=== PATIENT | female | born 1985 | race Caucasian/White ===

== ENCOUNTER 2017-06-24 10:36 | Emergency (ER) | payer OTHER ==
[~2017-06-24] VITALS: Ht 170.2 cm; Wt 81.0 kg
[~2017-06-24 10:36] MED LIST: GLUCTAB PO; MACR100C PO
[2017-06-24 10:39] VITALS: BP 142/75; PULSE 80; RESP 12; TEMP 98.9; O2SAT 100
[2017-06-24] MEDS ORDERED: CIPR0.3S RIGHT EAR (11:15)
--- NOTE | 2017-06-24 11:15 | PD ---
HPI Chief Complaint: ENT Complaint Time Seen by Provider: 11:05 Travel History International Travel<30 days: No Contact w/Intl Traveler<30days: No Traveled to known affect area: No History of Present Illness HPI 31 year-old female presents to emergency department for evaluation right ear pain worsening over last week. Patient denies trauma. No fever or chills. States that the pain radiates to her face. It is throbbing at times. Has history of otitis externa as well as otitis media. Has ENT follow-up. She has no other symptoms to report at this time. [facility] Past Medical History Medical History: Denies Significant Hx Cancer: No Cardiovascular Problems: No Diabetes: No Endocrine: No Gastrointestinal Disorders: Yes (ACID REFLUX ) Genitourinary: Yes (PTOS) Hepatitis: No Hiatal Hernia: No Immune Disorder: No Kidney Stones: Yes Musculoskeletal: No Neurologic: No Psychiatric: No Reproductive: Yes (PELVIC PAIN) Respiratory: No Thyroid Disease: No ?: LMP: 05/01/17 : 1 Para: 0 : 1 Past Surgical History Abdominal Surgery: No AICD: No Body Medical Devices: NONE Cardiac Surgery: No Ear Surgery: No Endocrine Surgery: No Eye Surgery: No Genitourinary Surgery: Yes (LITHOTRIPSY LEFT KIDNEY 2010; LASER SX FOR KIDNEY STONE 2001/LAPAROSCOPY) Gynecologic Surgery: No Joint Replacement: No Oral Surgery: No Pacemaker: No Thoracic Surgery: No Other Surgery: Yes Social History Alcohol Use: No Tobacco Use: No Substance Use: No Allergies-Medications (Allergen,Severity, Reaction): Coded Allergies: Sulfa (Sulfonamide Antibiotics) (Verified Allergy, Severe, 06/24/17) THROAT CLOSES, TONGUE SWELLS bee venom protein (honey bee) (Verified Allergy, Severe, SWELLING, SOB, ) penicillin G (Verified Allergy, Severe, 06/24/17) THROAT SWELLING, HIVES TO FACE Reported Meds & Prescriptions Reported Meds & Active Scripts Active Ciprodex Otic Drops (Ciprofloxacin-Dexamethasone Otic Drops) 0.3-0.1% Susp 4 Drop RIGHT EAR BID Reported Macrobid (Nitrofurantoin Macrocrystals) 100 Mg Cap 100 Mg PO BID Glucophage XR 24 HR (Metformin HCl) 500 Mg Tab 500 Mg PO BID FOR POLYCYSTIC OVARIAN SYNDROME Review of Systems Except as stated in HPI: all other systems reviewed are Neg Physical Exam Narrative GENERAL: Well-nourished, well-developed female patient in no acute distress SKIN: Focused skin assessment warm/dry. HEAD: Normocephalic. No mastoid tenderness EARS: Bilateral pinnae and left external canals appear within normal limits. Right external canal is edematous, mildly erythematous. I am able to visualize the tympanic membrane and it is intact. Bilateral tympanic membranes without erythema, dullness or perforation. EYES: No scleral icterus. No injection or drainage. ENT: Mucosa pink and moist. No erythema or exudates. No uvular edema. No uvular , palatal, or tonsillar deviation. Airway patent. Nasal turbinates appear normal without nasal blood, purulent drainage or septal hematoma. NECK: Supple, trachea midline. No JVD or lymphadenopathy. CARDIOVASCULAR: Regular rate and rhythm without murmurs, gallops, or rubs. RESPIRATORY: Breath sounds equal bilaterally. No accessory muscle use. MUSCULOSKELETAL: No cyanosis, or edema. BACK: Nontender without obvious deformity. No CVA tenderness. Data Data Last Documented VS Vital Signs Date Time Temp Pulse Resp B/P (MAP) Pulse Ox O2 Delivery O2 Flow Rate FiO2 06/24/17 11:31 06/24/17 10:39 98.9 80 12 100 MDM Medical Decision Making Medical Screen Exam Complete: Yes Emergency Medical Condition: Yes Medical Record Reviewed: Yes Differential Diagnosis Otitis externa versus otitis media versus abscess versus insect bite versus psoriasis versus cellulitis Narrative Course 31-year-old female presents to the emergency department for evaluation right ear pain. Physical exam is consistent with an otitis externa. Patiently provided Ciprodex otic drops prescription. She is counseled on care. She already has established with your nose and throat specialist and has had this in the past. I encouraged her to follow them. She agrees to return immediately with any acute worsening of symptoms. Diagnosis Primary Impression: Right otitis externa Qualified Codes: H60.501 - Unspecified acute noninfective otitis externa, right ear Referrals: Ear / Nose / Throat Specialist Primary Care Physician Patient Instructions: General Instructions, Otitis Externa (ED) Additional Instructions: Avoid q tip use Avoid water submersion Tylenol as directed on the package as needed for pain Follow up with a primary care provider Seek ENT evaluation if symptoms persist Return immediately with acute worsening of symptoms Med/Other Pt SpecificInfo: Prescription(s) given Scripts Ciprofloxacin-Dexamethasone Otic Drops (Ciprodex Otic Drops) 0.3-0.1% Susp 4 DROP RIGHT EAR BID for Infection, #1 BOTTLE 0 Refills Prov: Adia Bryan 06/24/17 Disposition: 01 DISCHARGE HOME Condition: Stable Adia Bryan Jun 24, 2017 11:15
== END 2017-06-24 11:32 | disposition home or self-care (01) ==
LOC: NEPD 10:36
DX: H60.501 Unspecified acute noninfective otitis externa, right ear (principal)
CPT/HCPCS: 99283

== ENCOUNTER 2017-10-18 09:28 | Emergency (ER) | payer OTHER ==
[~2017-10-18 09:28] MED LIST changes: +CIPR0.3S RIGHT EAR
--- NOTE | 2017-10-18 11:21 | PD ---
HPI Chief Complaint Shortness of breath palpitations Date Seen: Oct 18, 2017 Time Seen: 11:15 Travel History International Travel<30 Days: No Contact w/Intl Traveler<30Days: No Known Affected Area: No History of Present Illness HPI Patient 32-year-old white female P0 [address] Mo for care she complains of shortness of breath palpitations noted in the middle the night. She was racing out of her chest is had shortness of breath several times in the last couple weeks. No pain with breathing no rapid breathing, heart rate is reactive for 23 weeks and no contractions, she denies bleeding or leakage of fluid. Weeks Gestation: 23 Para: 0 : 1 History Social History Alcohol Use: No Tobacco Use: No Substance Abuse: No Allergies-Medications (Allergen,Severity, Reaction): Coded Allergies: Sulfa (Sulfonamide Antibiotics) (Verified Allergy, Severe, 10/18/17) THROAT CLOSES, TONGUE SWELLS bee venom protein (honey bee) (Verified Allergy, Severe, SWELLING, SOB, ) penicillin G (Verified Allergy, Severe, 10/18/17) THROAT SWELLING, HIVES TO FACE Home Meds Discontinued Reported Medications Nitrofurantoin Monohyd Macro (Macrobid) 100 Mg Cap, 100 MG PO BID, CAP 03/16/14 Metformin XR 24 HR (Glucophage XR 24 HR) 500 Mg Tab, 500 MG PO BID, TAB FOR POLYCYSTIC OVARIAN SYNDROME 03/06/14 Discontinued Scripts Ciprofloxacin-Dexamethasone Otic Drops (Ciprodex Otic Drops) 0.3-0.1% Susp, 4 DROP RIGHT EAR BID for Infection, #1 BOTTLE 0 Refills Prov:Adia Bryan 06/24/17 Review of Systems General / Constitutional: No: Fever, Weight Gain, Chills, Other Eyes: No: Diploplia, Blurred Vision, Visual changes, Pain, Photophobia HENT: No: Headaches, Vertigo, Lightheadedness Cardiovascular: Palpitations, No: Irregular Rhythm, Chest Pain or Discomfort, Tachycardia, Syncope, Varicosities, Edema, Cyanosis Respiratory: Short of Breath, No: Cough, Other Gastrointestinal: No: Nausea, Vomiting, Diarrhea Genitourinary: No: Decreased Urinary Output, Oliguria Musculoskeletal: No: Limited ROM, Weakness, Cramping, Edema, Pain Skin: No Rash, No Itching, No Dryness, No Lumps, No Change in Pigmentation, No Change in Nails, No Alopecia, No Lesions Neurologic: No: Weakness, Dizziness, Syncope, Focal Abnormalities, Coordination Problem, Headache, Slurred Speech, Seizures Psychiatric: No: Depression, Suicidal Ideations, Homicidal Ideation Endocrine: No: Heat Intolerance, Cold Intolerance, Polydipsia, Polyuria, Other Physical Exam Narrative GENERAL: Well-nourished, well-developed patient. SKIN: Warm and dry. HEAD: Normocephalic and atraumatic. EYES: No scleral icterus. No injection or drainage. ENT: No nasal drainage noted. Mucous membranes pink. Airway patent. NECK: Supple, trachea midline. No JVD. CARDIOVASCULAR: Regular rate and rhythm without murmurs, gallops, or rubs. RESPIRATORY: Breath sounds equal bilaterally. No accessory muscle use. BREASTS: Bilateral exam showed no masses , no retractions, no nipple discharge. ABDOMEN/GI: Abdomen soft, non-tender, bowel sounds present, no rebound, no guarding Gravid to [-23] weeks size Fundal Height: 23[-] [-] Membranes: [intact ] Uterine Contractions: [none-] FHT's: Category: [-1] Baseline: [133-] Reactive: [R-] Variability: [-mod] Decels: [none-] EXTREMITIES: No cyanosis or edema. BACK: Nontender without obvious deformity. No CVA tenderness. NEUROLOGICAL: Awake and alert. Motor and sensory grossly within normal limits. Five out of 5 muscle strength in all muscle groups. Normal speech. MDM Interpretation(s) -year-old white female at 23 weeks presents with some shortness of breath and palpitations. On OB ED she is has a normal sinus rhythm lungs are clear to auscultation she has no history of asthma,, flu, or pneumonia. She has no pain with respiration and no rapid breathing. Pulse ox is 99%. Slight likely just some mild shortness of breath related to Plan Norma to be discharged home to observation and sensory repeats itself to return for repeat evaluation. Diagnosis Diagnosis: Primary Impression: Shortness of breath due to in second trimester Additional Impression: Heart palpitations Disposition: 01 DISCHARGE HOME Condition: Stable Lionel Patel II, MD Oct 18, 2017 11:21
== END 2017-10-18 11:28 | disposition home or self-care (01) ==
LOC: HOBED 09:28
DX: O26.892 Other specified pregnancy related conditions, second trimester (principal); R06.02 Shortness of breath; R00.2 Palpitations; Z3A.23 23 weeks gestation of pregnancy
CPT/HCPCS: 99284

== ENCOUNTER 2018-01-30 14:55 | Emergency (ER) | payer OTHER ==
--- NOTE | 2018-01-30 15:51 | PD ---
HPI Chief Complaint Elevated blood pressure Date Seen: January 30, 2018 Time Seen: 15:49 Travel History International Travel<30 Days: No Contact w/Intl Traveler<30Days: No Known Affected Area: No History of Present Illness HPI 32-year-old who is at 38 weeks 1 day comes in due to a elevated blood pressure in the office. Patient states that her blood pressures have been slightly higher than normal the last couple of weeks and that 2-3 weeks ago she did blood work and 24-hour protein was normal. Today in the office her blood pressure was 128/90 and she was sent over for an evaluation. She states she has lower extremity edema but no other symptoms of preeclampsia. Patient denies contractions, vaginal bleeding, headache or abdominal pain. Good movement Weeks Gestation: 38 Para: 0 : 2 History Past Medical History Medical History: Denies Significant Hx Past Surgical History Narrative Surgical Diagnostic laparoscopy Lithotripsy Family History Family History: Negative Social History Alcohol Use: No Tobacco Use: No Substance Abuse: No Allergies-Medications (Allergen,Severity, Reaction): Coded Allergies: Sulfa (Sulfonamide Antibiotics) (Verified Allergy, Severe, 10/18/17) THROAT CLOSES, TONGUE SWELLS bee venom protein (honey bee) (Verified Allergy, Severe, SWELLING, SOB, ) penicillin G (Verified Allergy, Severe, 10/18/17) THROAT SWELLING, HIVES TO FACE Review of Systems Except as stated in HPI: all other systems reviewed are Neg Physical Exam Narrative GENERAL: Well-nourished, well-developed patient. SKIN: Warm and dry. HEAD: Normocephalic and atraumatic. EYES: No scleral icterus. No injection or drainage. ENT: No nasal drainage noted. Mucous membranes pink. Airway patent. NECK: Supple, trachea midline. No JVD. CARDIOVASCULAR: Regular rate and rhythm without murmurs, gallops, or rubs. RESPIRATORY: Breath sounds equal bilaterally. No accessory muscle use. ABDOMEN/GI: Abdomen soft, non-tender, bowel sounds present, no rebound, no guarding Gravid to [-40] weeks size Fundal Height: [-] GENITOURINARY: Deferred External Genitalia: intact and normal in appearance BUS glands: [-] Cervix: [-] Dilatation: [-] Effacement: [-] Station: [-] Presentation: [-] Membranes: [intact or ruptured] Uterine Contractions: [-] Absent FHT's: Category: [-] 1 Baseline: [-] 140 Reactive: [-] Moderate Variability: [-] Moderate Decels: [-] Absent EXTREMITIES: 2+ lower extremity edema BACK: Nontender without obvious deformity. No CVA tenderness. NEUROLOGICAL: Awake and alert. Motor and sensory grossly within normal limits. Five out of 5 muscle strength in all muscle groups. Normal speech. Data Data Orders Orders Vital Signs (Adult) .ON ADMISSION (01/30/18 15:48) ^ Labor Status (01/30/18 15:48) Urinalysis - C+S If Indicated (01/30/18 15:48) ^ Non Stress Test (01/30/18 15:48) Diet Liquid (01/30/18 Dinner) Cbc No Diff, Includes Plts (01/30/18 15:48) Comprehensive Metabolic Panel (01/30/18 15:48) Uric Acid (01/30/18 15:48) Protein Creat Ratio, Random Ur (01/30/18 15:48) Labs Laboratory Tests Test 01/30/18 15:40 01/30/18 15:50 Urine Color LIGHT-YELLOW Urine Turbidity HAZY Urine pH 5.5 Urine Specific [place] 1.015 Urine Protein 30 mg/dL Urine Glucose (UA) NEG mg/dL Urine Ketones NEG mg/dL Urine Occult Blood SMALL Urine Nitrite NEG Urine Bilirubin NEG Urine Urobilinogen LESS THAN 2.0 MG/DL Urine Leukocyte Esterase MOD Urine RBC 51 /hpf Urine WBC 56 /hpf Urine Squamous Epithelial Cells 7 /hpf Urine Bacteria MOD /hpf Microscopic Urinalysis Comment CULTURE INDICATED Urine Random Creatinine 103 MG/DL Urine Random Total Protein 42 MG/DL Urine Protein/Creatinine Ratio 0.41 White Blood Count 17.0 TH/MM3 Red Blood Count 4.53 MIL/MM3 Hemoglobin 11.8 GM/DL Hematocrit 35.7 % Mean Corpuscular Volume 78.8 FL Mean Corpuscular Hemoglobin 26.1 PG Mean Corpuscular Hemoglobin Concent 33.1 % Red Cell Distribution Width 15.6 % Platelet Count 211 TH/MM3 Mean Platelet Volume 10.4 FL Blood Urea Nitrogen 5 MG/DL Creatinine 0.59 MG/DL Random Glucose 119 MG/DL Total Protein 6.6 GM/DL Albumin 2.5 GM/DL Calcium Level 8.6 MG/DL Uric Acid 3.7 MG/DL Alkaline Phosphatase 142 U/L Aspartate Amino Transf (AST/SGOT) 13 U/L Alanine Aminotransferase (ALT/SGPT) 17 U/L Total Bilirubin 0.4 MG/DL Sodium Level 139 MEQ/L Potassium Level 3.7 MEQ/L Chloride Level 107 MEQ/L Carbon Dioxide Level 19.5 MEQ/L Anion Gap 13 MEQ/L Estimat Glomerular Filtration Rate 117 ML/MIN [facility] Medical Record Reviewed: Yes Plan 32-year-old who is at 38 weeks 1 day with gestational hypertension Preeclampsia blood work was normal except for an elevated protein creatinine ratio, patient will provide a 24-hour urine protein collection and this was given to her before discharge Patient was discharged home with follow-up to the office Patient will call the office tomorrow to discuss a follow-up date for this week , she is presently at decreased activity at home and her physician is aware of and is following her blood pressure elevation Diagnosis Diagnosis: Primary Impression: 38 weeks gestation of Additional Impressions: Maternal obesity syndrome in third trimester Gestational hypertension Disposition: 01 DISCHARGE HOME Delia Rice MD January 30, 2018 15:51
[2018-01-30 17:01] VITALS: BP 124/90; PULSE 89
[2018-01-30 17:09] LABS: HEMATOCRIT 35.7 % (35.0-46.0); HEMOGLOBIN 11.8 GM/DL (11.6-15.3); MEAN CELL VOLUME 78.8 FL (80.0-100.0); MEAN CORPUSCULAR HEMOGLOBIN 26.1 PG (27.0-34.0); MEAN CORPUSCULAR HGB CONC 33.1 % (32.0-36.0); MEAN PLATELET VOLUME 10.4 FL (7.0-11.0); PLATELET COUNT 211 TH/MM3 (150-450); RED BLOOD COUNT 4.53 MIL/MM3 (4.00-5.30); RED CELL DISTRIBUTION WIDTH 15.6 % (11.6-17.2)
[2018-01-30 17:16] VITALS: BP 124/83; PULSE 88
[2018-01-30 17:18] LABS: BACTERIA, URINE MOD /hpf; BILIRUBIN, URINE NEG (NEG); BLOOD, URINE SMALL (NEG); GLUCOSE,URINE NEG (NEG); KETONE, URINE NEG (NEG); NITRITE,URINE NEG (NEG); PH, URINE 5.5 (5.0-8.5); SQUAMOUS EPITHELIAL CELL URINE 7 /hpf (0-5); URINE COLOR LIGHT-YELLOW (YELLW/STRAW); URINE LEUKOCYTE ESTERASE MOD (NEG)
[2018-01-30 17:30] VITALS: BP 135/84; PULSE 92
[2018-01-30 17:33] LABS: ALBUMIN 2.5 GM/DL (3.4-5.0); AST (GOT) 13 U/L (15-37); BICARBONATE 19.5 MEQ/L (21.0-32.0); BLOOD UREA NITROGEN 5 MG/DL (7-18); CALCIUM 8.6 MG/DL (8.5-10.1); CHLORIDE 107 MEQ/L (98-107); CREATININE 0.59 MG/DL (0.50-1.00); GLOMERULAR FILTRATION RATE 117 ML/MIN (>89); GLUCOSE,RANDOM 119 MG/DL (74-106); SODIUM (NA) 139 MEQ/L (136-145)
[2018-01-30 17:34] LABS: ALT (GPT) 17 U/L (10-53)
[2018-01-30 17:36] LABS: ALKALINE PHOSPHATASE 142 U/L (45-117); TOTAL BILIRUBIN ADULT 0.4 MG/DL (0.2-1.0); TOTAL PROTEIN 6.6 GM/DL (6.4-8.2)
--- NOTE | 2018-02-06 17:56 | MH ---
cc: Ozzy Mo MD DATE OF ADMISSION: 01/30/2018 CHIEF COMPLAINT: Patient is to be admitted for induction of labor. history of mild preeclampsia. HISTORY OF PRESENT ILLNESS: The patient is a 32-year-old female. She is 1, para 0, estimated date of confinement is 02/09/2018. The patient is 40-1/7 weeks' gestation based on early first trimester ultrasound. The patient has been followed closely for increasing blood pressures. Blood pressure range has gone from 130s/70s to 140s/90. The patient has had recent lab work which demonstrates an increasing protein creatinine ratio and a 24-hour urine with elevated total protein. The patient denies any symptoms related to preeclampsia with severe features. She has no abdominal pain. No blurry vision, no visual disturbance, no headache. No nausea or vomiting. She feels active movement daily. After reviewing the patient's history, consideration for induction of labor was discussed. Risks, benefits, and complications potential for delivery were discussed as well and she agreed for induction of labor. ALLERGIES: THE PATIENT HAS AN ALLERGY TO PENICILLIN AND SULFA. PAST MEDICAL HISTORY: The patient has a chronic history of polycystic ovarian syndrome. She denies any other systemic or chronic disease states. PAST SURGICAL HISTORY: Includes diagnostic laparoscopy in 2013. OBSTETRICAL HISTORY: The patient is group B strep status negative. Patient's 1 hour Glucola was normal at 111. Patient's screening has all been normal. No evidence of infectious disease. The patient's blood type is O negative, screen negative. Genetic testing: The patient has normal quad screen. FAMILY HISTORY: Noncontributory. SOCIAL HISTORY: The patient is , fully employed. Denies any use of alcohol, tobacco or illicit substances. PHYSICAL EXAMINATION: GENERAL: The patient is well appearing female in no acute distress. VITAL SIGNS: Stable. Heart rate and pulse were in the 70s. The patient's blood pressure is 140/80. She weighs 243 pounds. heart tones in the 140s. NECK: Demonstrates no adenopathy or thyromegaly. Neck is supple, full range of motion. HEENT: Pupils are equally round and reactive to light. Sclerae are white. LUNGS: Clear in all kay. CARDIAC: Regular rate and rhythm. ABDOMEN: Gravid, full-term. Fundal height is 41 cm. PELVIC: Cervix is 50% posterior, closed. Vertex presentation documented by ultrasound and serial biophysical profiles, which were 04/25. Patient's estimated weight was 8 pounds 9 ounces, which was based on an ultrasound performed 01/23/2018. EXTREMITIES: Show 2+ pitting edema. Deep tendon reflexes were brisk. No clonus. NEUROLOGIC: Grossly intact, nonfocal. ASSESSMENT AND PLAN: The patient at 39 weeks and /7 with mild preeclampsia, elevated protein creatinine ratio and proteinuria. Group B strep status is negative. Normal 1 hour Glucola. Patient has a history of PCOS. Concerns for large for gestational age fetus. The patient was counseled to concerns for induction of labor and potential for section. MD ALISHA Dove/MARCO ANTONIO , 05:30 PM , 05:55 PM
== END 2018-01-30 18:00 | disposition home or self-care (01) ==
LOC: HOBED 14:55
DX: O14.03 Mild to moderate pre-eclampsia, third trimester (principal); O99.213 Obesity complicating pregnancy, third trimester; E66.9 Obesity, unspecified; O13.3 Gestational [pregnancy-induced] hypertension without significant proteinuria, third trimester; R82.71 Bacteriuria; Z3A.38 38 weeks gestation of pregnancy
CPT/HCPCS: 36415; 59025; 80053; 81001; 82570; 84156; 84550; 85027; 87086

== ENCOUNTER 2018-02-06 18:10 | Inpatient (IN) | payer OTHER ==
[~2018-02-06] VITALS: Ht 170.2 cm; Wt 110.0 kg
[2018-02-06] MEDS ORDERED: LACTATED RINGER'S 1000 ML INJ 1,000 ML IV PRN (19:12)
[2018-02-06] MEDS ORDERED: SODIUM CHLORID 0.9% 500 ML INJ 500 ML IV PRN (19:15)
[2018-02-06] MEDS ORDERED: SODIUM CHLORIDE 0.9% FLUSH 10 ML FLUSH IV FLUSH PRN (19:15)
[2018-02-06] MEDS ORDERED: DINOPROSTONE 10 MG VAG INSERT VAGINAL ONE (19:15)
[2018-02-06] MEDS ORDERED: CITRIC ACID-SODIUM CITRATE LIQ 30 ML UDC PO SCH (19:15)
[2018-02-06] MEDS ORDERED: LIDOCAINE HCL 1% 50 ML VIAL I-DERMAL PRN (19:15)
[2018-02-06] MEDS ORDERED: MINERAL OIL 10 ML VIAL TOPICAL PRN (19:15)
[2018-02-06] MEDS ORDERED: OXYTOCIN 30 UNITS-500ML PREMIX 500 ML IV ONE (19:15)
[2018-02-06] MEDS ORDERED: LIDOCAINE HCL 1% 50 ML VIAL INFIL PRN (19:15)
[2018-02-06] MEDS ORDERED: LACTATED RINGER'S 1000 ML INJ 1,000 ML IV SCH (19:16)
[2018-02-06 19:28] LABS: AUTOMATED NEUTROPHIL # 13.2 TH/MM3 (1.8-7.7); BASOPHIL # 0.1 TH/MM3 (0-0.2); BASOPHIL % 0.3 % (0.0-2.0); EOSINOPHIL # 0.3 TH/MM3 (0-0.4); EOSINOPHIL % 1.8 % (0.0-4.0); HEMATOCRIT 36.8 % (35.0-46.0); HEMOGLOBIN 12.1 GM/DL (11.6-15.3); LYMPH % 8.9 % (9.0-44.0); LYMPHOCYTE # 1.4 TH/MM3 (1.0-4.8); MEAN CELL VOLUME 78.1 FL (80.0-100.0); MEAN CORPUSCULAR HEMOGLOBIN 25.7 PG (27.0-34.0); MEAN CORPUSCULAR HGB CONC 32.9 % (32.0-36.0); MEAN PLATELET VOLUME 10.3 FL (7.0-11.0); MONO % 6.4 % (0.0-8.0); NEUT % 82.6 % (16.0-70.0); PLATELET COUNT 229 TH/MM3 (150-450); RED BLOOD COUNT 4.71 MIL/MM3 (4.00-5.30); RED CELL DISTRIBUTION WIDTH 15.6 % (11.6-17.2)
[2018-02-06] MEDS ORDERED: ZOLPIDEM TARTRATE 5 MG TAB PO PRN (19:30)
[2018-02-06] MEDS ORDERED: SODIUM CHLOR 0.9% 1000 ML INJ 1,000 ML IV PRN (19:32)
[2018-02-06 19:39] LABS: BACTERIA, URINE FEW /hpf; BILIRUBIN, URINE NEG (NEG); BLOOD, URINE TRACE (NEG); CALCIUM OXALATE CRYSTALS,URINE FEW /hpf; GLUCOSE,URINE NEG (NEG); KETONE, URINE NEG (NEG); NITRITE,URINE NEG (NEG); SQUAMOUS EPITHELIAL CELL URINE 4 /hpf (0-5); URINE COLOR YELLOW (YELLW/STRAW); URINE LEUKOCYTE ESTERASE LARGE (NEG)
[2018-02-06 19:45] LABS: ALBUMIN 2.6 GM/DL (3.4-5.0); AST (GOT) 12 U/L (15-37); BICARBONATE 18.3 MEQ/L (21.0-32.0); BLOOD UREA NITROGEN 7 MG/DL (7-18); CHLORIDE 107 MEQ/L (98-107); CREATININE 0.56 MG/DL (0.50-1.00); GLOMERULAR FILTRATION RATE 125 ML/MIN (>89); GLUCOSE,RANDOM 100 MG/DL (74-106); SODIUM (NA) 139 MEQ/L (136-145)
[2018-02-06 19:50] LABS: ALKALINE PHOSPHATASE 160 U/L (45-117); ALT (GPT) 16 U/L (10-53); TOTAL BILIRUBIN ADULT 0.3 MG/DL (0.2-1.0); TOTAL PROTEIN 6.8 GM/DL (6.4-8.2)
[2018-02-06] MEDS: LACTATED RINGER'S 1000 ML INJ 1,000 ML IV SCH (20:00)
[2018-02-06] MEDS ORDERED: SODIUM CHLORIDE 0.9% FLUSH 10 ML FLUSH IV FLUSH SCH (21:00)
[2018-02-07] MEDS: ONDANSETRON ODT 4 MG TAB SL PRN ×2 (02:28→08:32)
[2018-02-07] MEDS: LACTATED RINGER'S 1000 ML INJ 1,000 ML IV SCH ×3 (02:29→22:22)
--- NOTE | 2018-02-07 08:25 | PD.LABORPN ---
Subjective Subjective feeling very uncomfortable, states regular contractions started around 3am; nauseous, vomited once prior to check Objective Objective Pelvic Exam: Cervix: [high & posterior] Dilatation: [closed] Effacement: [thick] Station: [-3] Presentation: [vtx] Membranes: [intact] Uterine Contractions: [q2 min] FHT's: Category: [I] Weeks Gestation: 39 Gest Age Assessed Date: February 07, 2018 Pt started active labor?: No Medical induction of labor?: Yes Artificial rupture of membrane: No Assessment/Plan Problem List: (1) Gestational hypertension ICD Codes: O13.9 - Gestational [-induced] hypertension without significant proteinuria, unspecified trimester Status: Acute Qualifiers: Qualified Codes: O13.3 - Gestational [-induced] hypertension without significant proteinuria, third trimester (2) Term ICD Codes: Z34.80 - Encounter for supervision of other normal , unspecified trimester Assessment and Plan 32 yo with baker IUP at 39w2d, admit overnight from Dr. Mo for gestational HTN, proteinuria at term 1) GHTN for IOL: s/p cervidil overnight, despite regular contractions q2-3 min since 3am no cervical change, will continue to monitor but d/w pt & suspect large for gestational age, cephalopelvic disproportion, may need if does not progress 2) GBS neg 3) GHTN: mild BPs and normal PIH labs 4) status: vertex, female, EFW 9# 5) dispo: anticipate d/c to home 2-3d PP Evelyn Casillas MD February 07, 2018 08:25
[2018-02-07] MEDS ORDERED: MEPERIDINE HCL 50 MG/ML VIAL ONE (10:21)
[2018-02-07] MEDS ORDERED: CITRIC ACID-SODIUM CITRATE LIQ 30 ML UDC ONE (10:22)
[2018-02-07] MEDS ORDERED: PROMETHAZINE INJ 25 MG/ML VIAL IM ONE (10:45)
[2018-02-07] MEDS ORDERED: MEPERIDINE HCL 50 MG/ML VIAL IM ONE (10:45)
--- NOTE | 2018-02-07 11:53 | HHI.PR ---
MEDICAL PATHOLOGY TEACHER Note Note to bedside to re-evaluate pt; continues to have regular contractions and complains of pain q2-3 min, having continued N/V; SVE remains unchanged CLP; d/ w pt suspect CPD, recommend delivery via ; pt amenable & agrees Evelyn Casillas MD February 07, 2018 11:53
[2018-02-07] MEDS ORDERED: CLINDAMYCIN 600 MG/NS PREMIX 50 ML IV SCH (12:00)
[2018-02-07] MEDS ORDERED: CLINDAMYCIN INJ 600 MG in SODIUM CHLORIDE 0.9% INJ 100 ML IV SCH (13:00)
[2018-02-07] MEDS ORDERED: MORPHINE SULFATE PF 5 MG/10 ML VIAL ONE (13:29)
[2018-02-07] MEDS ORDERED: CITRIC ACID-SODIUM CITRATE LIQ 30 ML UDC PO SCH (13:30)
--- NOTE | 2018-02-07 15:41 | PD.OB.DELI ---
Procedure Note Section Procedure Pre Op Diagnosis: (1) Failed induction of labor (2) Term (3) Gestational hypertension Post Op Diagnosis: (1) S/P primary low transverse (2) Failed induction of labor (3) Term (4) Gestational hypertension Performed by Evelyn Casillas Procedure: Primary Low Transverse Sec Indication for delivery: Other (failed induction, suspected macrosomia/ CPD) Previous condition: None Informed consent obtained: For anesthesia, For procedure Confirmed correct: Patient, Procedure, Site, Time-out taken Anesthesia: Spinal Medication prior to procedure: As documented in eMAR Monitoring during procedure: Blood pressure monitoring, surveillance system monitor, Pulse oximetry Urinary catheter: Inserted using sterile technique, To dependent drainage, ml urine output (200) Sterile preparation: Duraprep, In usual fashion, With drapes to expose affected area Position: Supine with wedge to right side Operative Features Skin Incision: Pfannenstiel Uterine Incision: Low transverse w/knife / scissors Membranes Ruptured: Artificially, Amount of liquid (copious), Appearance of fluid (clear) Presentation: Occiput anterior Delivery date: February 07, 2018 Delivery time: 15:05 Delivery of infant: Uneventful Infant: Female One Minute : 8 Five Minute : 9 Weight: 10#1oz Status of : Viable, Cord blood, Nursery present Placenta delivered: Intact Medications: Antibiotics (ancef 2g IV) Estimated blood loss: 1000 mL Procedure tolerated: Well Maternal Condition: Stable Condition: Stable Procedure in detail see dictated op note for full details Evelyn Casillas MD February 07, 2018 15:41
[2018-02-07] MEDS ORDERED: ACETAMINOPHEN 1000 MG/100 ML 100 ML IV ONE (16:08)
--- NOTE | 2018-02-07 16:39 | MP ---
cc: Evelyn Casillas MD DATE OF OPERATION: 02/07/2018 DATE OF PROCEDURE: 02/07/2018 PREOPERATIVE DIAGNOSES: 1. Gestational hypertension with mild preeclampsia. 2. Term . 3. Failed induction of labor. POSTOPERATIVE DIAGNOSES: 1. Gestational hypertension with mild preeclampsia. 2. Term . 3. Failed induction of labor. 4. Postoperative day number 0. INDICATION FOR PROCEDURE: Teresa Trivedi is a 32-year-old 2, now para 1-0-1-1 who was seen and evaluated in the office for care. In the third trimester, she developed mildly elevated blood pressures and protein creatinine ratio did rule her in for preeclampsia, but all labs otherwise were within normal limits. At 39 weeks, she was brought in for induction of labor. She presented on the evening of 02/06/2018, had Cervidil vaginal insert. Cervix was long, closed and posterior on admission. On the morning of 02/07/2018, Cervidil was removed. The patient had been stephane regularly every 3 minutes since approximately 3:00 a.m. but cervix remained long, closed and posterior. Over the course of a few hours, the patient continued to have regular, consistent contractions, was very uncomfortable, requesting pain medication, but there was no cervical change. It was discussed with the patient and her that there was suspected cephalopelvic disproportion and large for gestational age and that delivery was recommended. As such, delivery was proceeded with . PROCEDURE PERFORMED: Primary low transverse delivery with vacuum-assisted delivery. SURGEON: Evelyn Casillas MD TYPE OF ANESTHESIA: Spinal. ESTIMATED BLOOD LOSS: 1000 mL. URINE OUTPUT: 200 mL of clear urine draining in the Sawant bag at the end of the procedure. IV FLUID REPLACEMENT: Approximately 1400 mL of lactated Ringer's. COMPLICATIONS: Include large for gestational age , necessitating vacuum-assisted delivery. PROPHYLAXIS: Clindamycin 600 mg IV was given preoperatively due to the patient's PENICILLIN ALLERGY. SCDs were on and functioning throughout the entire case. INTRAOPERATIVE FINDINGS: Include a large for dates, 10 pound 1 ounce, female infant with Apgars of 8 and 9. was vigorous and crying upon delivery. Placenta was intact. Normal appearing uterus with 2 subserosal anterior fibroids, 1 posterior subserosal fibroid. Adnexa within normal limits. SPECIMEN: None. PROCEDURE IN DETAIL: After reviewing the informed consent, the patient was taken to the operating suite, where a timeout was performed to identify the patient, the planned procedure, and any known allergies to drugs or drug products. The patient was placed sitting up on the operative table and spinal anesthesia was administered without difficulty and found to be adequate. The patient was then laid in dorsal supine position with a bump under her right side and abdomen and perineum were prepped and draped in normal sterile fashion. Sawant catheter was placed using sterile technique. Attention was turned to abdominally, where a Pfannenstiel type skin incision was made with the scalpel, carried down to the underlying layer of fascia with the Bovie. The fascia was incised in the midline. Incision was extended laterally with sharp dissection using Shelton scissors. Seth was used to elevate the fascia superiorly and rectus muscles were bluntly dissected and sharply dissected using Shelton scissors. Seth was then moved to the inferior aspect of the fascial incision and rectus muscles were both bluntly and sharply dissected off of the fascia. The rectus muscles were then in the midline. Peritoneum was identified and elevated with hemostat and entered sharply with Metzenbaum scissors. Incision was extended superiorly and inferiorly with good visualization of intra-abdominal contents. A bladder blade was placed. A bladder flap was not made. Low transverse uterine incision was made with a scalpel, extended bluntly. 's head was grasped and elevated. This was a very large for dates infant and a decision was made to release the infant's head as surgeon felt hysterotomy needed to be extended. Bandage scissors were then used to extend the uterine incision. 's head was again grasped and flexed up through the incision. 's head was still not easily delivered, so vacuum was called for. Vacuum was applied and with a single pull expulsive effort, the 's head was delivered, vacuum suction was released. With gentle maneuvering the rest of the 's body readily followed. Delayed cord clamping was performed. 's nose and mouth were suctioned with bulb suction and was stimulated by the awaiting nursery staff. Cord was then clamped and cut and the infant was handed off to the awaiting nursery staff. Cord segment and cord blood samples were taken. Placenta was delivered spontaneously with gentle cord traction and fundal massage. Uterus was then exteriorized and cleared of all clots and debris with sterile moist lap sponges. Hysterotomy was repaired in a double-layer, first with #1 chromic in a running locked fashion; then, in an imbricating layer. The posterior cul-de-sac was irrigated copiously with warm sterile saline. Uterus was returned to the abdomen. Additional irrigation with suction was performed and excellent hemostasis was noted. Interceed layer was placed over the repaired hysterotomy to act as an adhesive barrier. The peritoneum was then closed in a running layer with 2-0 chromic. The fascia was closed in a running layer with #1 Vicryl. Subcutaneous tissue was irrigated copiously with warm sterile saline and excellent hemostasis was ensured with the Bovie. A series of interrupted sutures using 2-0 chromic was placed to close the subcutaneous space and the skin was closed with 3-0 Monocryl in subcuticular fashion. Skin was cleaned and dried. Steri-Strips were placed as well as a standard dressing. The patient tolerated the procedure well. Procedure concluded at this point. DISPOSITION: Infant is nursery status. Patient's estimated length of stay is 2-3 postoperative days. MD OMID Britton/MARCO ANTONIO , 04:01 PM , 04:38 PM YRIS
[2018-02-07] MEDS ORDERED: EPIDURAL-NALOXONE HCL 0.4 MG/ML AMP IV PUSH PRN (18:00)
[2018-02-07] MEDS ORDERED: EPIDURAL-NO SYSTEMIC NARCOTICS PRN (18:00)
[2018-02-07] MEDS ORDERED: EPIDURAL-DO NOT ADMINISTER ANTICOAGULANTS PRN (18:00)
[2018-02-07] MEDS ORDERED: EPIDURAL-DIPHENHYDRAMINE HCL 50 MG CAP PO PRN (18:00)
[2018-02-07] MEDS ORDERED: EPIDURAL-DIPHENHYDRAMINE HCL 50 MG/ML VIAL IV PUSH PRN (18:00)
[2018-02-07] MEDS ORDERED: OXYTOCIN 30 UNITS-500ML PREMIX 500 ML IV ONE ×2 (18:15→18:30)
[2018-02-07] MEDS ORDERED: SIMETHICONE 80 MG CHEWABLE TAB PO PRN (18:15)
[2018-02-07] MEDS ORDERED: SODIUM CHLORIDE 0.9% FLUSH 10 ML FLUSH IV FLUSH PRN (18:15)
[2018-02-07] MEDS ORDERED: ONDANSETRON ODT 4 MG TAB PO PRN (18:30)
[2018-02-07 20:38] VITALS: BP 133/75; PULSE 74; RESP 17; TEMP 98.5
[2018-02-07] MEDS ORDERED: ZOLPIDEM TARTRATE 5 MG TAB PO PRN (21:00)
[2018-02-07] MEDS: SODIUM CHLORIDE 0.9% FLUSH 10 ML FLUSH IV FLUSH SCH (21:00)
[2018-02-07] MEDS ORDERED: CLINDAMYCIN 900 MG/NS PREMIX 50 ML IV ONE (22:00)
[2018-02-07] MEDS ORDERED: OXYTOCIN 30 UNITS-500ML PREMIX 500 ML IV PRN (23:15)
[2018-02-08] MEDS: IBUPROFEN 600 MG TAB PO PRN ×3 (00:44→18:35)
[2018-02-08] MEDS: DOCUSATE SODIUM 50 MG/SENNA 8.6 MG TAB PO PRN (00:44)
[2018-02-08 04:34] VITALS: BP 130/63; PULSE 90; RESP 18; TEMP 98
[2018-02-08] MEDS: LACTATED RINGER'S 1000 ML INJ 1,000 ML IV SCH (05:40)
[2018-02-08 05:56] LABS: AUTOMATED NEUTROPHIL # 16.8 TH/MM3 (1.8-7.7); BASOPHIL % 0.2 % (0.0-2.0); EOSINOPHIL % 0.2 % (0.0-4.0); LYMPH % 6.2 % (9.0-44.0); LYMPHOCYTE # 1.2 TH/MM3 (1.0-4.8); MEAN CELL VOLUME 78.6 FL (80.0-100.0); MEAN CORPUSCULAR HEMOGLOBIN 26.1 PG (27.0-34.0); MEAN CORPUSCULAR HGB CONC 33.2 % (32.0-36.0); MEAN PLATELET VOLUME 10.2 FL (7.0-11.0); MONO % 7.8 % (0.0-8.0); MONOCYTE # 1.5 TH/MM3 (0-0.9); NEUT % 85.6 % (16.0-70.0); PLATELET COUNT 211 TH/MM3 (150-450); RED BLOOD COUNT 3.82 MIL/MM3 (4.00-5.30); RED CELL DISTRIBUTION WIDTH 15.5 % (11.6-17.2); WHITE BLOOD COUNT 19.7 TH/MM3 (4.0-11.0)
--- NOTE | 2018-02-08 07:52 | HHI.OB ---
Subjective Post Operative Day: 1 Remarks doing well, drinking fluids, catheter out, awaiting void, Objective Vitals/I&O Vital Signs Date Time Temp Pulse Resp B/P (MAP) Pulse Ox O2 Delivery O2 Flow Rate FiO2 02/08/18 04:34 98.0 90 18 130/63 (85) 02/07/18 20:38 98.5 74 17 133/75 (94) 02/07/18 09:30 16 Result Diagram: 02/08/18 0454 02/06/18 1842 Objective Remarks GENERAL: Well-nourished, well-developed patient. CARDIOVASCULAR: Regular rate and rhythm without murmurs, gallops, or rubs. RESPIRATORY: Breath sounds equal bilaterally. No accessory muscle use. ABDOMEN/GI: Abdomen soft, non-tender, bowel sounds present. Incision: dressing Clean, dry and intact. Fundus: Firm, non-tender at umbilicus. GENITOURINARY: Light to moderate bleeding. EXTREMITIES: No cyanosis or edema, non-tender, without signs of DVT. Medications and IVs Current Medications Medications (Trade) Dose Ordered Sig/Yuliet Route Start Time Stop Time Status Last Admin Lactated Ringer's 1,000 ml @ 100 mls/hr Q10H IV 02/07/18 23:13 02/08/18 19:12 02/08/18 05:40 Oxytocin 500 ml @ 100 mls/hr UNSCH X1 PRN IV 02/07/18 23:15 02/08/18 23:14 (NS Flush) 2 ml BID IV FLUSH 02/07/18 21:00 (NS Flush) 2 ml UNSCH PRN IV FLUSH 02/07/18 18:15 (Mylicon Chew) 80 mg QID PRN PO 02/07/18 18:15 (Motrin) 600 mg Q6H PRN PO 02/07/18 18:15 02/08/18 00:44 (Percocet 5-325 Mg) 1 tab Q4H PRN PO 02/07/18 18:15 (Percocet 5-325 Mg) 2 tab Q4H PRN PO 02/07/18 18:15 (Linh-Colace) 2 tab Q12H PRN PO 02/07/18 18:15 02/08/18 00:44 (Ambien) 5 mg HS PRN PO 02/07/18 21:00 (M-M-R Ii Inj) 0.5 ml ONCE ONCE SQ 02/08/18 16:00 02/08/18 16:01 (Boostrix Inj) 0.5 ml ONCE ONCE IM 02/08/18 16:00 02/08/18 16:01 (Zofran Odt) 4 mg Q6H PRN PO 02/07/18 18:30 Assessment/Plan Problem List: (1) Gestational hypertension ICD Codes: O13.9 - Gestational [-induced] hypertension without significant proteinuria, unspecified trimester Status: Acute Qualifiers: Qualified Codes: O13.3 - Gestational [-induced] hypertension without significant proteinuria, third trimester (2) Term ICD Codes: Z34.80 - Encounter for supervision of other normal , unspecified trimester (3) S/P primary low transverse ICD Codes: Z98.891 - History of uterine scar from previous surgery Assessment and Plan POD #1 C/S, baby 10+ lbs routine post op care Discharge Planning routine Attending Attestation pt seen by Mia Aguilera MD February 08, 2018 07:52
[2018-02-08] MEDS: oxyCODONE/ACETAMINOPHEN 5 MG/325 MG TAB PO PRN ×3 (09:36→19:09)
[2018-02-08] MEDS ORDERED: DIPHTH/TETANUS/ACEL PERTUSSIS (BOOSTER) 0.5 ML VIAL/PFS IM ONE (16:00)
[2018-02-08] MEDS ORDERED: MEASLES, MUMPS, RUBELLA VACCINE 0.5 ML VIAL SQ ONE (16:00)
[2018-02-08] MEDS ORDERED: diphenhydrAMINE HCL 25 MG CAP PO PRN (19:00)
[2018-02-08 20:30] VITALS: BP 128/61; PULSE 90; RESP 17; TEMP 97.8
[2018-02-09] MEDS: IBUPROFEN 600 MG TAB PO PRN ×4 (02:51→20:45)
[2018-02-09] MEDS: DOCUSATE SODIUM 50 MG/SENNA 8.6 MG TAB PO PRN ×2 (02:51→14:41)
[2018-02-09 07:40] VITALS: BP 118/65; PULSE 85; RESP 18; TEMP 98.1
[2018-02-09] MEDS: SODIUM CHLORIDE 0.9% FLUSH 10 ML FLUSH IV FLUSH SCH ×2 (07:43→21:00)
[2018-02-09] MEDS: oxyCODONE/ACETAMINOPHEN 5 MG/325 MG TAB PO PRN ×3 (07:44→20:45)
[2018-02-09] MEDS: diphenhydrAMINE HCL 50 MG CAP PO PRN ×3 (08:38→20:48)
--- NOTE | 2018-02-09 08:43 | HHI.OB ---
Subjective Post Operative Day: 2 Remarks POD 2 incision and lower abdomen quite painful nursing BPs normal Hct 30 would like benedryl Objective Vitals/I&O Vital Signs Date Time Temp Pulse Resp B/P (MAP) Pulse Ox O2 Delivery O2 Flow Rate FiO2 02/08/18 20:30 97.8 90 17 128/61 (83) Result Diagram: 02/08/18 7197 02/06/18 8615 Objective Remarks GENERAL: Well-nourished, well-developed patient. CARDIOVASCULAR: Regular rate and rhythm without murmurs, gallops, or rubs. RESPIRATORY: Breath sounds equal bilaterally. No accessory muscle use. ABDOMEN/GI: Abdomen soft, non-tender, bowel sounds present. Incision: dressing Clean, dry and intact. Fundus: Firm, non-tender at umbilicus. GENITOURINARY: Light to moderate bleeding. EXTREMITIES: No cyanosis or edema, non-tender, without signs of DVT. Medications and IVs Current Medications Medications (Trade) Dose Ordered Sig/Yuliet Route Start Time Stop Time Status Last Admin (NS Flush) 2 ml BID IV FLUSH 02/07/18 21:00 (NS Flush) 2 ml UNSCH PRN IV FLUSH 02/07/18 18:15 (Mylicon Chew) 80 mg QID PRN PO 02/07/18 18:15 (Motrin) 600 mg Q6H PRN PO 02/07/18 18:15 02/09/18 08:38 (Percocet 5-325 Mg) 1 tab Q4H PRN PO 02/07/18 18:15 02/08/18 09:36 (Percocet 5-325 Mg) 2 tab Q4H PRN PO 02/07/18 18:15 02/09/18 07:44 (Linh-Colace) 2 tab Q12H PRN PO 02/07/18 18:15 02/09/18 02:51 (Ambien) 5 mg HS PRN PO 02/07/18 21:00 (Zofran Odt) 4 mg Q6H PRN PO 02/07/18 18:30 (Benadryl) 25 mg Q6H PRN PO 02/08/18 19:00 02/08/18 19:06 (Benadryl) 50 mg Q6H PRN PO 02/08/18 19:00 02/09/18 08:38 Assessment/Plan Problem List: (1) Gestational hypertension ICD Codes: O13.9 - Gestational [-induced] hypertension without significant proteinuria, unspecified trimester Status: Acute Qualifiers: Qualified Codes: O13.3 - Gestational [-induced] hypertension without significant proteinuria, third trimester (2) Term ICD Codes: Z34.80 - Encounter for supervision of other normal , unspecified trimester (3) S/P primary low transverse ICD Codes: Z98.891 - History of uterine scar from previous surgery Assessment and Plan POD #1 C/S, baby 10+ lbs routine post op care 02/09/18 POD 2 benadryl for itching home tomorrow counseled on PPD, risk of DVT, BP and need for one week check Discharge Planning routine Maxine Husain MD February 09, 2018 08:43
[2018-02-10] MEDS: DOCUSATE SODIUM 50 MG/SENNA 8.6 MG TAB PO PRN (04:37)
[2018-02-10] MEDS: diphenhydrAMINE HCL 50 MG CAP PO PRN (04:37)
[2018-02-10] MEDS: IBUPROFEN 600 MG TAB PO PRN (04:37)
[2018-02-10] MEDS: oxyCODONE/ACETAMINOPHEN 5 MG/325 MG TAB PO PRN (04:37)
[2018-02-10 08:00] VITALS: BP 120/74; PULSE 73; RESP 18; TEMP 97.8
[2018-02-10] MEDS: SODIUM CHLORIDE 0.9% FLUSH 10 ML FLUSH IV FLUSH SCH (09:25)
--- NOTE | 2018-02-10 09:30 | HHI.OB ---
Subjective Post Operative Day: 3 Remarks doing better wrt pain will take a percocet with motrin at home bowels and bladder fine no PPD ready for discharge Objective Vitals/I&O Vital Signs Date Time Temp Pulse Resp B/P (MAP) Pulse Ox O2 Delivery O2 Flow Rate FiO2 02/10/18 08:00 97.8 73 18 120/74 (89) 02/10/18 06:05 18 02/10/18 06:05 18 Result Diagram: 02/08/18 0454 02/06/18 6918 Objective Remarks GENERAL: Well-nourished, well-developed patient. CARDIOVASCULAR: Regular rate and rhythm without murmurs, gallops, or rubs. RESPIRATORY: Breath sounds equal bilaterally. No accessory muscle use. ABDOMEN/GI: Abdomen soft, non-tender, bowel sounds present. Incision: dressing Clean, dry and intact. Fundus: Firm, non-tender at umbilicus. GENITOURINARY: Light to moderate bleeding. EXTREMITIES: No cyanosis or edema, non-tender, without signs of DVT. Medications and IVs Current Medications Medications (Trade) Dose Ordered Sig/Yuliet Route Start Time Stop Time Status Last Admin (NS Flush) 2 ml BID IV FLUSH 02/07/18 21:00 (NS Flush) 2 ml UNSCH PRN IV FLUSH 02/07/18 18:15 (Mylicon Chew) 80 mg QID PRN PO 02/07/18 18:15 (Motrin) 600 mg Q6H PRN PO 02/07/18 18:15 02/10/18 04:37 (Percocet 5-325 Mg) 1 tab Q4H PRN PO 02/07/18 18:15 02/09/18 14:41 (Percocet 5-325 Mg) 2 tab Q4H PRN PO 02/07/18 18:15 02/10/18 04:37 (Linh-Colace) 2 tab Q12H PRN PO 02/07/18 18:15 02/10/18 04:37 (Ambien) 5 mg HS PRN PO 02/07/18 21:00 (Zofran Odt) 4 mg Q6H PRN PO 02/07/18 18:30 (Benadryl) 25 mg Q6H PRN PO 02/08/18 19:00 02/08/18 19:06 (Benadryl) 50 mg Q6H PRN PO 02/08/18 19:00 02/10/18 04:37 Assessment/Plan Problem List: (1) Gestational hypertension ICD Codes: O13.9 - Gestational [-induced] hypertension without significant proteinuria, unspecified trimester Status: Acute Qualifiers: Qualified Codes: O13.3 - Gestational [-induced] hypertension without significant proteinuria, third trimester (2) Term ICD Codes: Z34.80 - Encounter for supervision of other normal , unspecified trimester (3) S/P primary low transverse ICD Codes: Z98.891 - History of uterine scar from previous surgery Assessment and Plan POD #1 C/S, baby 10+ lbs routine post op care 02/09/18 POD 2 benadryl for itching home tomorrow counseled on PPD, risk of DVT, BP and need for one week check POD 3 doing well home and return in one week counseled on what and when to call between now and next visit Discharge Planning routine Maxine Husain MD February 10, 2018 09:30
[2018-02-10] MEDS ORDERED: OXYC1TAB63 PO (09:32)
--- NOTE | 2018-02-10 09:32 | HHI.DCPOC ---
Discharge Care Plan Report Symptoms to Your Doctor -Temperature above 100.5 degrees -Redness, of incision or excessive or foul smelling drainage -Unusual pain or calf pain -Increased vaginal bleeding -Painful or difficulty urinating -Feelings of extreme sadness or anxiety after 2 weeks Goals to Promote Your Health * To prevent worsening of your condition and complications * To maintain your health at the optimal level Directions to Meet Your Goals Take your medications as prescribed Follow your dietary instruction Follow activity as directed Ensure plenty of rest for recovery Drink fluids for hydration Keep your appointments as scheduled Take your immunizations and boosters as scheduled If your symptoms worsen call your PCP, if no PCP go to Urgent Care Center or Emergency Room Smoking is Dangerous to Your Health. Avoid second hand smoke Call the 24-hour crisis hotline for domestic abuse at Maxine Husain MD February 10, 2018 09:31
[2018-02-10] MEDS ORDERED: IBUP-232 PO (09:33)
== END 2018-02-10 12:12 | disposition home or self-care (01) | DRG 766 ==
LOC: H2EB 18:10 → H1EA 02-07 17:09
PROVIDERS: ADMIT Obstetrics & Gynecology; ATTEND Obstetrics & Gynecology
PROC: 3E0P7VZ Introduction of Hormone into Female Reproductive, Via Natural or Artificial Opening (ICD-10-PCS; 2018-02-06)
PROC: 10D00Z1 Extraction of Products of Conception, Low, Open Approach (ICD-10-PCS; principal; 2018-02-07)
DX: O14.04 Mild to moderate pre-eclampsia, complicating childbirth (principal); O61.9 Failed induction of labor, unspecified; D25.2 Subserosal leiomyoma of uterus; O34.13 Maternal care for benign tumor of corpus uteri, third trimester; O33.5XX0 Maternal care for disproportion due to unusually large fetus, not applicable or unspecified; Z37.0 Single live birth; Z3A.39 39 weeks gestation of pregnancy; Z88.0 Allergy status to penicillin
CPT/HCPCS: 59025; 80053; 80307; 81001; 82805; 84550; 85025; 85461; 86850; 86900; 86901; 87086; 90384; C1765; J0131; J1200; J2175; J2274; J2790; J3010; J7120; Q0163